=== PATIENT | male | born 1985 | race Caucasian/White ===

== ENCOUNTER 2025-04-19 00:07 | Emergency (ER) | payer OTHER ==
[~2025-04-19] VITALS: Ht 182.9 cm; Wt 95.5 kg
[2025-04-19] MEDS ORDERED: IBUPROFEN 800 MG TAB PO ONE (00:45)
[2025-04-19] MEDS ORDERED: AMOXICILLIN/CLAVULANATE K 875 MG HOME.PACK PO ONE (00:45)
[2025-04-19] MEDS ORDERED: BICTEGRAV/EMTRICIT/TENOFOV 1 EACH HOME.PACK PO ONE (01:15)
[2025-04-19] MEDS ORDERED: BIKTARVY 50-201 EACH PO (01:33)
[2025-04-19] MEDS ORDERED: AMOX TR-K CLV1 EAC1 PO (01:39)
[2025-04-19 01:57] VITALS: BP 133/87
[2025-04-20 09:47] LABS: HEPATITIS B SURFACE ANTIBODY >1000.00 IU/L (())
[2025-04-20 16:50] LABS: HIV 1,2 COMBO ANTIGEN/ANTIBODY Negative (Negative)
[2025-04-20 18:02] LABS: HEPATITIS C AB CIA INTERP Negative (Negative); HEPATITIS C ANTIBODY CIA INDEX <0.02 IV (())
== END 2025-04-19 01:59 | disposition home or self-care (01) ==
LOC: ED 00:07
PROVIDERS: Internal Medicine
DX: S71.152A Open bite, left thigh, initial encounter (principal); Y04.1XXA Assault by human bite, initial encounter
CPT/HCPCS: 36415; 84460; 86706; 86803; 99284; A9270